=== PATIENT | female | born 1965 | race Caucasian/White ===

== ENCOUNTER 2016-04-19 07:15 | Emergency (ER) | payer OTHER ==
[~2016-04-19] VITALS: Wt 62.0 kg
[2016-04-19] MEDS ORDERED: KETOROLAC 30 MG INJ IM STA (08:04)
--- NOTE | 2016-04-19 08:12 | ERD ---
ER Documentation Chief Complaint Date/Time DATE: 04/19/16 TIME: 08:07 Chief Complaint cough and sore throat for 1 week. mild sob . HPI This patient is a 50-year-old female with no significant medical history presenting to the emergency department for sore throat and cough which is been ongoing intermittently for 1 week. Additionally the patient states she feels like she lost her voice and she has had myalgias. The patient states the cough is mildly productive and worse at night. She states her symptoms have been progressively worsening. She took Tylenol at home with only mild relief of her symptoms. She reports no flu shot this year. She reports sick contacts. She denies any nausea, vomiting, diarrhea, fever, chills, urinary symptoms, or other symptoms at this time. ROS All systems reviewed and are negative except as per history of present illness. Allergies Allergies: Coded Allergies: No Known Allergy (Unverified , 04/19/16) PMhx/Soc Medical and Surgical Hx: pt denies Medical Hx, pt denies Surgical Hx History of Surgery: No Anesthesia Reaction: No Hx Neurological Disorder: No Hx Respiratory Disorders: No Hx Cardiac Disorders: No Hx Psychiatric Problems: No Hx Miscellaneous Medical Probl: No Hx Alcohol Use: No Hx Substance Use: No Hx Tobacco Use: No Smoking Status: Never smoker FmHx Noncontributory for chief complaint Physical Exam Vitals Vital Signs Date Time Temp Pulse Resp B/P Pulse Ox O2 Delivery O2 Flow Rate FiO2 04/19/16 07:17 98.1 77 20 126/71 97 Physical Exam INITIAL VITAL SIGNS: Reviewed by me. GENERAL: Alert and interactive. No acute distress. HEAD: Head is normocephalic and atraumatic. EYES: EOMI. No scleral icterus. No conjunctival injection. ENT: Moist mucosa. The throat is mildly erythematous but there is no tonsillar exudate or hypertrophy. NECK: Supple. Full range of motion. RESPIRATORY: Shallow inspiratory effort. Clear breath sounds bilaterally. No wheezing, rales, or rhonchi. CV: Regular rate and rhythm. Normal S1 S2. No S3 or S4. No murmurs. ABDOMEN: Soft, non-distended, non-tender. No guarding. No rebound. No masses. EXTREMITIES: No deformity. SKIN: Warm and dry. NEUROLOGIC: Alert and oriented x 4. Speech is normal. Moves all extremities equally. No motor or sensory deficits noted. Results 24 hrs Current Medications Medications (Trade) Dose Ordered Sig/Christine Route PRN Reason Start Time Stop Time Status Last Admin Dose Admin Ketorolac Tromethamine (Toradol) 30 mg ONCE STAT IM 04/19/16 08:04 04/19/16 08:06 DC 04/19/16 08:26 Dexamethasone (Decadron) 8 mg ONCE ONCE IM 04/19/16 08:30 04/19/16 08:31 DC 04/19/16 08:27 Procedures/MDM EMERGENCY DEPARTMENT COURSE / MEDICAL DECISION MAKING: This is a 50-year-old female who comes to the emergency room secondary to complaints of feeling like she lost her voice, cough, and sore throat for 1 week. One view chest x-ray interpreted by radiologist: PROCEDURE: XR Chest. CLINICAL INDICATION: Chest pain TECHNIQUE: Single frontal chest x-ray. COMPARISON: None. FINDINGS: The lungs are clear. No focal opacification is seen. The cardiomediastinal silhouette is unremarkable. The osseous structures are unremarkable. IMPRESSION: 1. Unremarkable chest x-ray. Differential diagnosis includes pharyngitis, influenza, bronchitis, and others. The patient was given IM Decadron 8 mg and IM Toradol 30 mg in the department. On reevaluation the patient was feeling improved. MDM: Based off of history, physical examination, and chest x-ray findings I believe the patient's symptoms are caused by an upper respiratory infection, likely viral in etiology. At this time I have very low suspicion for bronchitis , pneumonia, severe influenza, urinary tract infection, or other pathology. The patient is afebrile and nontoxic-appearing. The patient will be treated as an outpatient and she is stable for discharge at this time. Discharge: I have discussed the diagnostic findings with the patient and answered any questions or concerns. The patient was discharged with a prescription for Promethazine DM, Tessalon Perles, and Tylenol for management of cough and body aches at home. The patient was advised to followup with their PMD in 1-2 days and to return to the ED if there are any new or worsening symptoms. The patient understood and agreed with treatment and plan. Departure Diagnosis: Primary Impression: Cough Additional Impressions: Upper respiratory infection Laryngitis Condition: Stable Additional Instructions: Follow-up with your primary care physician within 1 week. Return to the emergency department immediately should you have any new or worsening symptoms, uncontrolled fevers, or other unexplained symptoms. Take all medications as directed. RADHA HOBSON PA-C Apr 19, 2016 08:12
[2016-04-19] MEDS ORDERED: DEXAMETHASONE 10 MG/ML 1 ML INJ IM ONE (08:30)
--- NOTE | 2016-04-19 08:34 | RADRPT ---
PROCEDURE: XR Chest. CLINICAL INDICATION: Chest pain TECHNIQUE: Single frontal chest x-ray. COMPARISON: None. FINDINGS: The lungs are clear. No focal opacification is seen. The cardiomediastinal silhouette is unremarka ble. The osseous structures are unremarkable. IMPRESSION: 1. Unremarkable chest x-ray. RPTAT: XX .Khari Mullen MD, MD Date Time Electronically viewed and signed by .Khari Mullen MD, on 04/19/2016 08:34 .d/
[2016-04-19] MEDS ORDERED: BENZ-5 PO (08:40)
[2016-04-19] MEDS ORDERED: MED4DP PO (08:41)
[2016-04-19] MEDS ORDERED: ACET325T33 PO (08:41)
[2016-04-19] MEDS ORDERED: D-ME473S18 PO (08:41)
[2016-04-19 09:16] VITALS: BP 122/64; PULSE 84; RESP 20; TEMP 98
== END 2016-04-19 09:17 | disposition home or self-care (01) ==
LOC: FTE 07:15
DX: R05 Cough (principal); J04.0 Acute laryngitis; J06.9 Acute upper respiratory infection, unspecified
CPT/HCPCS: 71010; 96372; J1100; J1885; Z7502